=== PATIENT | female | born 1960 | race Caucasian/White ===

== ENCOUNTER → 2021-02-21 11:42 | Outpatient (CLI) | payer OTHER, SELFPAY ==
--- NOTE | 2021-02-21 11:47 | XR_ITS ---
PROCEDURE: XR KNEE RT 3V CLINICAL INDICATION: ACUTE PAIN COMPARISON: CR KNEE3L KNEE-3 VIEWS-LT from 01/16/2013 FINDINGS: No fracture or dislocation. No lytic or blastic change. There is normal mineralization. There are minimal osteoarthritic changes involving the medial lateral compartment and patellofemoral joint. Small suprapatellar effusion suspected. Other findings:None. IMPRESSION: Minimal osteoarthritis with small suprapatellar effusion Dictated by: Titus Willams MD 02/21/2021 12:24 Titus Willams MD in [place] 02/21/2021 12:24
--- NOTE | 2021-02-21 11:47 | XR_ITS ---
PROCEDURE: XR KNEE LT 3V CLINICAL INDICATION: ACUTE PAIN COMPARISON: CR KNEE3L KNEE-3 VIEWS-LT from 01/16/2013 FINDINGS: There are mild osteoarthritic changes involving all 3 compartments. These findings have developed since the previous exam No fracture or dislocation. Other findings:Suspect small suprapatellar effusion. IMPRESSION: Osteoarthritis of the left knee with small joint effusion Dictated by: Titus Willams MD 02/21/2021 12:23 Titus Willams MD in [place] 02/21/2021 12:23
== END ==
PROVIDERS: PCP Family Medicine; Visit Provider Nurse Practitioner Family
DX: M25.562 Pain in left knee (principal); M25.561 Pain in right knee
CPT/HCPCS: 73562

== ENCOUNTER → 2022-10-19 10:07 | Outpatient (CLI) | payer OTHER, SELFPAY ==
--- NOTE | 2022-10-19 10:14 | XR_ITS ---
FINAL REPORT CLINICAL HISTORY: ACUTE LEFT FOOT PAIN, r/o stress fracture. pain @ head of 2nd metatarsal w slight swelling FINDINGS: Left foot Three views were obtained. There is a minimally displaced fracture of the 2nd metatarsal diaphysis. There is no significant callus formation at the fracture site. Mild degenerative changes are present. IMPRESSION: Minimally displaced fracture of the 2nd metatarsal diaphysis. Reviewed, Interpreted and Dictated by Jens Martinez III, MD Transcribed by Anna Morris Authenticated and [facility]
== END ==
PROVIDERS: PCP Internal Medicine; Visit Provider Family Medicine
DX: M79.672 Pain in left foot (principal)
CPT/HCPCS: 73630

== ENCOUNTER → 2022-11-07 08:58 | Outpatient (CLI) | payer OTHER, SELFPAY ==
--- NOTE | 2022-11-07 08:58 | XR_ITS ---
FINAL REPORT CLINICAL HISTORY: . lt foot fx, post menopausal FINDINGS: Using L1-4, the bone mineral density of the spine is 0.806 g/cm2, corresponding to T-score of -2.2. Using the left hip, the bone mineral density of the femoral neck is 0.759 g/cm2, corresponding to a T-score of -1.5. Using the right hip: The bone mineral density of the femoral neck is 0.818 g/cm2, corresponding to a T-score of -1.0. FRAX 10 year fracture risk is 12% for a hip fracture and 0.6% for a major osteoporotic fracture. IMPRESSION: Osteopenic bone mineral density of the lumbar spine and hips. NOTE: T-score: Standard deviation compared with peak bone mass of young adult mean. *Following the recommendations of the International Society of Bone densitometry, classification of hip BMD is based on the lower of two T-scores; total hip or femoral neck. Reviewed, Interpreted and Dictated by Dm Moreno MD Transcribed by Rebekah Flores Authenticated and [facility]
== END ==
PROVIDERS: PCP Internal Medicine; Visit Provider Orthopaedic Surgery
DX: S92.322A Displaced fracture of second metatarsal bone, left foot, initial encounter for closed fracture (principal); M85.89 Other specified disorders of bone density and structure, multiple sites
CPT/HCPCS: 77080

== ENCOUNTER → 2022-11-24 12:53 | Outpatient (CLI) | payer OTHER, SELFPAY ==
--- NOTE | 2022-11-24 13:01 | XR_ITS ---
FINAL REPORT CLINICAL HISTORY: lt foot pain COMPARISON: 10/19/2022 FINDINGS: LEFT FOOT Three views of the left foot demonstrate a subacute fracture of the midportion of the 2nd metatarsal with callus formation at the fracture site. There is new, 2 mm of lateral displacement of the distal fracture fragment. The visualized joint spaces are normally aligned. The soft tissues are unremarkable. IMPRESSION: Subacute fracture of the midportion of the 2nd metatarsal with new, 2 mm of lateral displacement. Reviewed, Interpreted and Dictated by Jens Martinez III, MD Transcribed by Feli Hunter Authenticated and [facility]
== END ==
PROVIDERS: PCP Internal Medicine; Visit Provider Orthopaedic Surgery
DX: M79.672 Pain in left foot (principal); S92.322A Displaced fracture of second metatarsal bone, left foot, initial encounter for closed fracture
CPT/HCPCS: 73630

== ENCOUNTER → 2022-12-22 12:51 | Outpatient (CLI) | payer OTHER, SELFPAY ==
--- NOTE | 2022-12-22 12:59 | XR_ITS ---
FINAL REPORT CLINICAL HISTORY: Lt foot pain, f/u fx COMPARISON: 11/24/2022 FINDINGS: LEFT FOOT SERIES Three views of the left foot were obtained. There is a mildly displaced oblique fracture of the mid second metatarsal. There is extensive bridging callus formation. The joint spaces are preserved. There is no soft tissue abnormality. IMPRESSION: Healing fracture of the second metatarsal. Reviewed, Interpreted and Dictated by Alverto Gonsalves MD Transcribed by Getachew Tim Authenticated and [facility]
== END ==
PROVIDERS: PCP Family Medicine; Visit Provider Orthopaedic Surgery
DX: M79.672 Pain in left foot (principal); S92.322A Displaced fracture of second metatarsal bone, left foot, initial encounter for closed fracture
CPT/HCPCS: 73630

== ENCOUNTER 2024-06-04 15:20 | Outpatient (CLI) | payer BC, OTHER, SELFPAY ==
--- NOTE | 2024-06-04 | XR_ITS ---
FINAL REPORT CLINICAL HISTORY: INTERNAL DERANGEMENT OF KNEE COMPARISON: 02/21/2021 FINDINGS: Three views of the left knee reveal no evidence of fracture or dislocation. The bony alignment is normal. There are severe degenerative changes of the medial compartment with significant worsening since the prior examination. Mild degenerative changes are noted elsewhere in the knee. There is no evidence of joint effusion. No localized soft tissue abnormality is seen. IMPRESSION: Degenerative changes without acute abnormality identified. Reviewed, Interpreted and Dictated by Jens Martinez III, MD Transcribed by Maureen Rosales Authenticated and [facility]
== END 2024-06-04 23:59 | disposition home or self-care (01) ==
LOC: RAD 15:22
PROVIDERS: PCP Nurse Practitioner; Visit Provider Nurse Practitioner
DX: M23.92 Unspecified internal derangement of left knee (principal)
CPT/HCPCS: 73562

== ENCOUNTER 2024-07-22 14:40 | Outpatient (CLI) | payer BC, OTHER, SELFPAY ==
--- NOTE | 2024-07-22 14:44 | MR_ITS ---
FINAL REPORT CLINICAL HISTORY: LT KNEE PAIN medial side knee pain unable to bear weight x 6 weeks COMPARISON: None FINDINGS: Multi planar MR imaging was performed of the right knee. On the sagittal images, the anterior cruciate ligament is not well seen. However, it appears to be present on the coronal images. The posterior cruciate ligament is intact. The quadriceps and patellar tendons are intact. There is marked indentation of the medial tibial plateau with prominent underlying degenerative cyst formation and probable bone infarct of the medial tibial metaphysis. On the parasagittal images, the medial meniscus is completely degenerated and not seen. There is extensive degenerative cyst formation of the medial femoral condyle measuring up to 3.2 x 2.2 cm. Prominent degenerative cysts are seen along the undersurface of the patella. There is a small joint effusion. Laterally, there is flattening of the anterior and posterior horns of the lateral meniscus, probably due to degenerative tears. 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 Large degenerative cyst medial femoral condyle. Flattening of the anterior and posterior horns lateral meniscus consistent with chronic degenerative tears. Degenerative cysts along the undersurface of the patella. Reviewed, Interpreted and Dictated by Alverto Gonsalves MD Transcribed by Shona Oconnell Authenticated and [facility]
== END 2024-07-22 23:59 | disposition home or self-care (01) ==
LOC: RAD 14:41
PROVIDERS: PCP Nurse Practitioner; Visit Provider Nurse Practitioner
DX: M25.562 Pain in left knee (principal)
CPT/HCPCS: 73721

== ENCOUNTER 2024-11-27 09:00 | Outpatient (RCR) | payer BC, SELFPAY | END 2024-11-27 23:59 | disposition home or self-care (01) | LOC: PT 09:00 | PROVIDERS: PCP Nurse Practitioner; Visit Provider Orthopaedic Surgery Adult Reconstructive Orthopaedic Surgery | DX: M17.12 Unilateral primary osteoarthritis, left knee (principal) | CPT/HCPCS: 97110; 97140; 97163 ==

== ENCOUNTER 2024-12-19 15:00 | Outpatient (RCR) | payer BC, SELFPAY | END 2024-12-19 23:59 | disposition home or self-care (01) | LOC: PT 15:00 | PROVIDERS: PCP Nurse Practitioner; Visit Provider Orthopaedic Surgery Adult Reconstructive Orthopaedic Surgery | DX: M17.12 Unilateral primary osteoarthritis, left knee (principal) | CPT/HCPCS: 97110; 97530 ==